=== PATIENT | female | born 1960 | race Caucasian/White ===

== ENCOUNTER 2018-09-01 18:41 | Inpatient (IN) | payer OTHER ==
[~2018-09-01] VITALS: Ht 154.9 cm; Wt 99.0 kg
[~2018-09-01 18:41] MED LIST: BENAZEPRIL HCL20 MG PO; DEXILANT60 MG PO; INVOKANA PO; NOVOLOG INSULIN PUMP
--- OUTSIDE RECORDS SUMMARY | 2018-09-01 18:45 | XMS REPORT ---
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 Allergies, Adverse Reactions, Alerts Allergy Name Allergy Type Status Severity Reaction(s) Onset Date Inactive Date Treating Clinician Comments No Known Drug Allergies DA Active U 2013-06-18 00:00:00 Medications This patient has no known medications.
[2018-09-01 19:34] LABS: BASOPHILS % 0.3 % (0.0-1.0); EOSINOPHILS # (AUTO) 0.3 (0.0-0.4); EOSINOPHILS % 2.5 % (0.0-6.0); HEMATOCRIT 37.2 % (34.2-44.1); HEMOGLOBIN 11.6 g/dL (12.0-16.0); LYMPHOCYTES % 16.3 % (18.0-39.1); MEAN CORPUSCULAR HEMOGLOBIN 26.1 pg (28-32); MEAN CORPUSCULAR HGB CONC 31.2 g/dL (31-35); MEAN CORPUSCULAR VOLUME 83.8 fL (81-99); MONOCYTES # (AUTO) 0.6 (0.2-0.8); MONOCYTES % 4.6 % (4.4-11.3); NEUTROPHILS # (AUTO) 9.2 (2.1-6.9); NEUTROPHILS % 75.9 % (38.7-80.0); PLATELET COUNT 237 x10e3/uL (140-360); RED BLOOD COUNT 4.44 x10e6/uL (3.6-5.1); RED CELL DISTRIBUTION WIDTH 15.4 % (11.7-14.4)
[2018-09-01 19:42] LABS: INR 0.88; PROTHROMBIN TIME 12.4 seconds (11.9-14.5)
[2018-09-01 19:43] LABS: PARTIAL THROMBOPLASTIN TIME 25.8 seconds (23.8-35.5)
[2018-09-01 19:52] LABS: ALBUMIN 3.4 g/dL (3.5-5.0); ALBUMIN/GLOBULIN RATIO 1.1 (0.8-2.0); CREATININE, SERUM 1.1 mg/dL (0.57-1.11)
[2018-09-01 19:59] LABS: CREATINE KINASE MB 1.5 ng/mL (0-5.0)
--- NOTE | 2018-09-01 20:11 | Diagnostic Imaging Report ---
EXAMINATION: PA and lateral views of the chest. COMPARISON: None CLINICAL HISTORY: Syncope, bradycardia, and dizziness DISCUSSION: Lungs: The lungs are well inflated and clear. There is no evidence of pneumonia or pulmonary edema. Pleura: There is no pleural effusion or pneumothorax. Heart and mediastinum: Mildly enlarged chronic silhouette. Pulmonary vasculature is normal. Bones and soft tissues: No acute bony abnormalities. Degenerative changes in the thoracic spine IMPRESSION: No acute cardiopulmonary abnormalities. Signed by: Eric Schneider MD on 09/01/2018 8:08 PM
[2018-09-01 20:27] LABS: BILIRUBIN,URINE NEGATIVE (NEGATIVE); CLARITY,URINE HAZY (CLEAR); COLOR,URINE YELLOW (YELLOW); KETONES,URINE NEGATIVE (NEGATIVE); LEUKOCYTE ESTERASE ,URINE NEGATIVE (NEGATIVE); NITRITE,URINE NEGATIVE (NEGATIVE); PROTEIN,URINE DIPSTICK TRACE (NEGATIVE); URINE UROBILINOGEN 0.2 mg/dL (0.2 - 1)
[2018-09-01 20:39] LABS: AMORPHOUS SEDIMENT,URINE MANY (FEW); BACTERIA,URINE FEW /HPF; EPITHELIAL CELLS,URINE FEW /LPF; TRANSITIONAL EPI CELLS,URINE MANY
[2018-09-01] MEDS ORDERED: LOSARTAN POTASS50 MG PO (23:34)
[2018-09-01] MEDS ORDERED: AZELASTINE137 MCG/0. INH (23:34)
[2018-09-01] MEDS ORDERED: PANTOPRAZOLE SO40 MG PO (23:34)
[2018-09-01] MEDS ORDERED: JANUVIA100 MG PO (23:34)
[2018-09-02] VITALS (23 sets, daily range): BP systolic 109–189; BP diastolic 35–91
[2018-09-02] MEDS ORDERED: DEXTROSE 50% SYRINGE 50 ML IV PRN (00:15)
[2018-09-02] MEDS ORDERED: ASPIRIN81 MG PO (01:54)
[2018-09-02 05:04] LABS: BASOPHILS % 0.4 % (0.0-1.0); EOSINOPHILS # (AUTO) 0.2 (0.0-0.4); EOSINOPHILS % 2.2 % (0.0-6.0); HEMATOCRIT 33.5 % (34.2-44.1); HEMOGLOBIN 10.7 g/dL (12.0-16.0); LYMPHOCYTES # (AUTO) 3.3 (1.0-3.2); LYMPHOCYTES % 30.5 % (18.0-39.1); MEAN CORPUSCULAR HEMOGLOBIN 26.2 pg (28-32); MEAN CORPUSCULAR HGB CONC 31.9 g/dL (31-35); MEAN CORPUSCULAR VOLUME 81.9 fL (81-99); MONOCYTES # (AUTO) 0.8 (0.2-0.8); MONOCYTES % 7.6 % (4.4-11.3); NEUTROPHILS # (AUTO) 6.3 (2.1-6.9); NEUTROPHILS % 58.9 % (38.7-80.0); PLATELET COUNT 250 x10e3/uL (140-360); RED BLOOD COUNT 4.09 x10e6/uL (3.6-5.1); RED CELL DISTRIBUTION WIDTH 15.4 % (11.7-14.4)
[2018-09-02 05:22] LABS: ANION GAP 10.9 mmol/L (8-16); BLOOD UREA NITROGEN 14 mg/dL (7-26); BUN/CREATININE RATIO 15 (6-25); CALCIUM 9.7 mg/dL (8.4-10.2); CARBON DIOXIDE 26 mmol/L (22-29); CHLORIDE 104 mmol/L (98-107); CREATININE, SERUM 0.91 mg/dL (0.57-1.11); EST GLOMERULAR FILTRATION RATE > 60 ML/MIN (60-); GLUCOSE 209 mg/dL (74-118); POTASSIUM 3.9 mmol/L (3.5-5.1); SODIUM 137 mmol/L (136-145)
--- NOTE | 2018-09-02 06:37 | NUR ---
Notified Dr. Jara of consult for Dr. Chavarria. No new orders received. Message left with answering service this morning for Dr. Inman regarding consult. Awaiting return call.
--- NOTE | 2018-09-02 07:15 | NUR ---
patient received awake and alert. seeshift assess. 3rd degree heart block. instructed to call for help to bathroom to avoid falls. keeping npo until seen by cardiology for possible pacer placement today. no distress. vitals stable.
[2018-09-02] MEDS: INSULIN LISPRO 100 UNIT/1 ML 3ML VIAL SQ SCH ×5 (07:30→21:10)
[2018-09-02] MEDS: ASPIRIN 81 MG CHEW TAB PO SCH (08:09)
[2018-09-02] MEDS: PANTOPRAZOLE SOD 40 MG TABEC PO SCH (08:09)
--- NOTE | 2018-09-02 08:10 | NUR ---
patient states protonix given this am for acid reflux. 0900 dose held.
--- NOTE | 2018-09-02 10:17 | NUR ---
WOUND CARE-PUP SCREEN LOS : 1 DAY AGE: 58 F ROGERS SCORE :20 VISCO MATTRESS/ALTERNATING PRESSURE AIR MATTRESS PUP : CONSERVATIVE HOB: 30 DEGREES HEEL PROTECTORS: NONE PATIENT VISIT/SKIN CHECK: BILATERAL BUTTOCKS WITH BLANCHING REDNESS, NO SKIN BREAKDOWN IDENTIFIED. PATIENT ABLE TO TURN SELF RECOMMENDATION: TURN AND REPOSITION EVERY 2 HOURS Addendum: 09/02/18 at 1038 by Dali Jimenez RN Amended: Links added. Addendum: 09/02/18 at 1228 by Dali Jimenez RN PATIENT AND SPOUSE EDUCATED TO THE IMPORTANCE OF TURNING EVERY 2 HRS. SHE IS CURRENTLY ON AN ALTERNATING PRESSURE RELIEF MATTRESS WITH APPROPRIATE SETTINGS.
--- NOTE | 2018-09-02 11:33 | NUR ---
Dr Kincaid in to see patient then notified by phone that runs of V-Tach are becoming more frequent and longer. He is trying to move pacer to an earlier time. patient hooked to defibrillator as safety precaution.
--- NOTE | 2018-09-02 13:21 | NUR ---
ATTEMPTED CM INITIAL ASSESSMENT, BUT PT HAVING RUNS OF VTACH AND GOING FOR PMI. WILL ASSESS LATER.
[2018-09-02] MEDS ORDERED: BACITRACIN 50,000 UNIT VIAL ONE (14:12)
[2018-09-02] MEDS ORDERED: LIDOCAINE HCL 2% LOCAL 20 ML VIAL ONE ×2 (14:12→16:30)
[2018-09-02] MEDS ORDERED: SODIUM CHLORIDE 0.9% 500ML 500 ML ONE (14:13)
[2018-09-02] MEDS ORDERED: SODIUM CHLORIDE 0.9% 1000ML 2,000 ML ONE (14:13)
--- NOTE | 2018-09-02 14:50 | NUR ---
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
[2018-09-02] MEDS ORDERED: VANCOMYCIN 1GM/NS 250 ML 250 ML ONE (15:11)
[2018-09-02] MEDS ORDERED: MIDAZOLAM HCL 2 MG/2 ML VIAL ONE ×3 (15:17→16:29)
[2018-09-02] MEDS ORDERED: FENTANYL CITRATE/PF 100MCG/2 ML INJ ONE ×2 (15:18→16:30)
--- NOTE | 2018-09-02 16:10 | NUR ---
Report received from Tona Andrews RN. Review of current procedural events and pending LHC. VS trend reviewed and left shoulder area PPM assessed. Assume of care.
[2018-09-02] MEDS ORDERED: HEPARIN SOD (PORCINE) 1000 UNIT/ML 30ML ONE (16:29)
[2018-09-02] MEDS ORDERED: IOPAMIDOL 370 MG/ML 200 ML INFUS..BTL INJ ONE (16:30)
[2018-09-02] MEDS ORDERED: HEPARIN SOD/SOD CHLORIDE 2,000 ML ONE (16:30)
--- NOTE | 2018-09-02 16:35 | NUR ---
pacemaker placed and new consent signed for heart cath by Dr Chavarria.
--- NOTE | 2018-09-02 17:31 | NUR ---
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 right groin site with no hematoma or bleeding. BP slightly high but will monitor closely.
--- NOTE | 2018-09-02 17:35 | NUR ---
Report provided to Jurgen Wilks RN, review of procedural findings and medications given. Patient drowsy, easily aroused. maintains airway and room air saturations of 94-96%. No gross issues of pressure, pain, pallor or dysrhythmia. IV site patent bilateral forearms and saline locked. patient hemodynamically stable with hemostasis right groin dressing CDI w/o s/s of bleeding. [facility]/o incident. Arm immobilizer applied to left arm. Dressing to left upper chest intact w/o gross issues. overall skin condition appears intact transported to ICU 194 on zolls monitor- cgf procedure: AV PPM, Left Heart cath with coronary angiography Sheath puller: Eleno RTr 5Fr Vasqade Meds Given Intra-Procedure Sedatives Versed - 4 mg Fentanyl - 100 mcg Fluids Input - 500 Output - dtv Contrast Isovue 370 - 60ml (ppm+lhc) Other Meds Vancomycin 1gram IVPB
[2018-09-02] MEDS ORDERED: MORPHINE SULFATE 2 MG/ML SYR 1ML IV PRN (17:45)
[2018-09-02] MEDS ORDERED: MORPHINE SULFATE INJ 4 MG/ML INJ 1ML IV PRN (18:00)
[2018-09-02] MEDS ORDERED: HYDROCODONE/APAP 10MG-325MG TAB PO PRN (22:45)
--- NOTE | 2018-09-02 23:14 | Consultation ---
DATE OF CONSULTATION: Cardiology Consultation. HISTORY OF PRESENT ILLNESS: This is a 58-year-old woman with a history of obesity, hypertension, diabetes mellitus, who presented to the Emergency Department with severe lightheadedness and dizziness with near syncope. She denies any idalia syncope or loss of consciousness. She was found to be in complete heart block with episodes of ventricular tachycardia and was admitted to the intensive care unit. She is currently feeling well with occasional episodes of dizziness. REVIEW OF SYSTEMS: A 12-point review of system was conducted, is negative, otherwise as stated above in the HPI. PAST MEDICAL HISTORY: As stated above in the HPI. PAST SURGICAL HISTORY: None. FAMILY HISTORY: No premature coronary artery disease or sudden cardiac . SOCIAL HISTORY: No illicit drug use, alcohol use or tobacco use. ALLERGIES: NO KNOWN DRUG ALLERGIES. MEDICATIONS: See medications reconciliation form. PHYSICAL EXAMINATION: VITAL SIGNS: She is afebrile, heart rate is 38, respirations are 17, blood pressure is 164/54, oxygen saturation 97% on room air. GENERAL: Well appearing in no apparent distress. Alert and oriented x3. HEAD: Normocephalic, atraumatic. Eyes, the extraocular muscles are intact. Conjunctivae are clear. NECK: No JVD. No bruits. CARDIOVASCULAR: Regular rate and rhythm. LUNGS: Clear to auscultation bilaterally. No wheezing or rales. ABDOMEN: Soft, nontender, nondistended with normoactive bowel sounds. EXTREMITIES: No clubbing, cyanosis or edema. VASCULAR: 2+ pulses. SKIN: Warm, dry and intact. NEUROLOGIC: No focal deficits noted. Cranial nerves grossly intact. PSYCHIATRIC: Normal mood and affect. LABORATORY DATA: Reviewed. Potassium 3.9, creatinine 0.91, glucose elevated. Liver function tests normal. Troponin is normal. A 12-lead electrocardiogram showed complete heart block. Telemetry monitoring revealed complete heart block with episodes of polymorphic ventricular tachycardia. IMPRESSION: 1. Complete heart block. 2. Ventricular tachycardia. 3. Hypertension. 4. Hyperlipidemia. 5. Obesity. 6. Diabetes mellitus. RECOMMENDATIONS: Electrophysiology has plans to place a permanent pacemaker today. Over the time, patient will likely get rid of the ventricular tachycardia. If needed, we will restart beta blockers and/or amiodarone for her ventricular tachycardia. The patient will require coronary angiography as well at the time of pacemaker implantation. We will continue to monitor closely. DO POLLY Mcclure/JIN /[id number]
[2018-09-03] VITALS (13 sets, daily range): BP systolic 93–165; BP diastolic 33–79
[2018-09-03] MEDS: PANTOPRAZOLE SOD 40 MG TABEC PO SCH (08:15)
[2018-09-03] MEDS: ASPIRIN 81 MG CHEW TAB PO SCH (08:15)
[2018-09-03] MEDS ORDERED: LOSARTAN POTASSIUM 25 MG TAB PO SCH (09:00)
[2018-09-03] MEDS ORDERED: NON-FORMULARY MEDICATION (Losartan Potassium 1 TAB) PO SCH (09:00)
--- NOTE | 2018-09-03 09:24 | NUR ---
Received patient from ICU via wheelchair. Accompanied by family members. AAOX4 to time, person, place, situation. Respirations even and unlabored. Tele #20 paced. Sling to left arm. Oriented patient to room. Instructed to use call light for assistance. Voiced understanding. WIll continue to monitor.
--- NOTE | 2018-09-03 09:25 | NUR ---
PT TRANSFERRED TO ROOM 206.
--- NOTE | 2018-09-03 11:51 | Operative Report ---
DATE OF PROCEDURE: SURGEON: Lionel Kincaid DO PROCEDURES PERFORMED: 1. Conscious sedation, 26 minutes. 2. Selective coronary angiography x2. 3. Left heart catheterization. PREPROCEDURE DIAGNOSIS: Complete heart block with ventricular tachycardia. POSTPROCEDURE DIAGNOSIS: Nonobstructive coronary artery disease. ESTIMATED BLOOD LOSS: Less than 20 mL. SPECIMENS REMOVED: None. PROCEDURE IN DETAIL: After informed consent was obtained, the patient was brought to the cardiac catheterization laboratory in a fasting and nonsedated state. Bilateral groins were prepped and draped in the usual sterile fashion. A 2% lidocaine was infiltrated over the right anterior groin for local anesthesia. Using micropuncture needle, the right common femoral artery was accessed via modified Seldinger technique and a 5-Luxembourgish sheath was placed. Next, diagnostic coronary angiography was performed using a JL4 and 3DRC catheter. The 3DRC catheter was used to perform the left heart catheterization as well. The patient tolerated the procedure well. Hemostasis was achieved via Vascade device. The patient tolerated the procedure well with no immediate complications. She was transferred back to room in stable condition. PROCEDURE FINDINGS: 1. Left main coronary artery is patent without significant coronary artery disease. 2. Left anterior descending coronary artery is patent with mild luminal irregularities. 3. Left circumflex coronary artery provides one medium caliber obtuse marginal vessel with mild luminal irregularities. 4. Right coronary artery is a dominant vessel, provides the posterior descending coronary artery. The proximal portion of the posterior descending coronary artery has 20% to 30% non-flow limiting stenosis. 5. Left ventricular end-diastolic pressure was 15 mmHg with no aortic valve gradient present upon pullback. Lionel Kincaid DO BM/MODL /[id number]
[2018-09-03] MEDS: INSULIN LISPRO 100 UNIT/1 ML 3ML VIAL SQ SCH ×2 (12:13→15:36)
--- NOTE | 2018-09-03 15:15 | NUR ---
aware patient cleared from cardiac standpoint. See orders
--- NOTE | 2018-09-03 15:36 | NUR ---
Educated patient s/s of hypoglycemia. States " I will be connecting myself to my insulin pump tonight"
--- NOTE | 2018-09-03 15:55 | NUR ---
Left AC IV discontinued. No signs of infiltration noted. 2x2 gauze and tape placed. Taken via wheelchair by PCT to personal car. AAOX4 to time, person, place, situation. Respirations even and unlabored. Dressing to right groin and left chest clean, dry, and intact. Sling to left arm in place. Discharge instructions and all personal belongings taken with patient. Accompanied by .
--- NOTE | 2018-09-03 17:44 | Progress Note ---
DATE: Cardiology Progress Note SUBJECTIVE: The patient is feeling well. Denies any chest pain, shortness of breath, dizziness, or lightheadedness. OBJECTIVE: VITAL SIGNS: Temperature is 97.8, heart rate is 85, respirations are 18, blood pressure is 125/60, and oxygen saturation 98% on room air. GENERAL: Well appearing, in no apparent distress. CARDIOVASCULAR: Regular rate and rhythm with ectopy. LUNGS: Clear to auscultation. ABDOMEN: Soft, nontender, and nondistended. EXTREMITIES: No edema. MEDICATIONS: Reviewed. LABORATORY DATA: Reviewed. TELEMETRY: Monitoring revealed ventricular paced rhythm. Pacemaker interrogation today showed normal function. IMPRESSION: 1. Complete heart block, status post permanent pacemaker implantation. 2. Ventricular tachycardia, likely related to complete heart block. 3. Nonobstructive coronary artery disease. 4. Diabetes mellitus. RECOMMENDATIONS: The patient has a stable cardiovascular status within the last 24 hours. The pacemaker has normal function. She had no significant coronary artery disease noted on coronary angiography. Continue current cardiovascular medications. The patient may be discharged from a cardiovascular standpoint with close outpatient followup. We would recommend statin initiation given mild nonobstructive coronary artery disease and diabetes mellitus. DO POLLY Mcclure/JIN /[id number]
--- NOTE | 2018-09-05 02:22 | Discharge Summary ---
DISCHARGE DIAGNOSES: Complete heart block, status post permanent pacemaker, diabetes, hypertension, and nonsustained ventricular tachycardia. HISTORY OF PRESENT ILLNESS: The patient is a lady, who presented to the emergency room with complete heart block after syncopal episode. She was brought in and seen by Dr. Kincaid of Cardiology, who sent her to the [facility] Conveyor Operator showing nonobstructive coronary artery disease. She did have an episode of ventricular tachycardia during the procedure that required one round of shock, then she had a pacemaker placed without complications with 100 percent pacing at around 85 beats per minute and she had some postprocedure soreness in the shoulder area. Then, postprocedure, Dr. Kincaid evaluated the patient and said she was cleared to be discharged home in good condition with continuation of home medications and follow up with me in 1-2 weeks as well as with Dr. Kincaid in 1-2 weeks. Please see hospital chart for full details. MD ALEXY Thurston/JIN /[id number]
== END 2018-09-03 15:59 | disposition home or self-care (01) | DRG 243 ==
LOC: ER 18:41 → ERHOLD 09-02 00:58 → ICU 09-02 01:20 → OBSVTOIN 09-02 11:11 → MED/SURG2 09-03 09:28
PROVIDERS: ADMIT Internal Medicine; ATTEND Internal Medicine
PROC: 0JH606Z Insertion of Pacemaker, Dual Chamber into Chest Subcutaneous Tissue and Fascia, Open Approach (ICD-10-PCS; 2018-09-02)
PROC: 02H63JZ Insertion of Pacemaker Lead into Right Atrium, Percutaneous Approach (ICD-10-PCS; 2018-09-02)
PROC: 02HK3JZ Insertion of Pacemaker Lead into Right Ventricle, Percutaneous Approach (ICD-10-PCS; 2018-09-02)
PROC: 4A023N7 Measurement of Cardiac Sampling and Pressure, Left Heart, Percutaneous Approach (ICD-10-PCS; principal; 2018-09-03)
PROC: B2111ZZ Fluoroscopy of Multiple Coronary Arteries using Low Osmolar Contrast (ICD-10-PCS; 2018-09-03)
PROC: B2151ZZ Fluoroscopy of Left Heart using Low Osmolar Contrast (ICD-10-PCS; 2018-09-03)
DX: I44.2 Atrioventricular block, complete (principal); Z68.41 Body mass index [BMI] 40.0-44.9, adult; E11.9 Type 2 diabetes mellitus without complications; I10 Essential (primary) hypertension; I47.2 Ventricular tachycardia; E66.9 Obesity, unspecified
CPT/HCPCS: 33208; 36415; 71046; 80048; 80053; 81001; 82550; 82553; 82948; 84443; 84484; 85025; 85610; 85730; 93306; 93458; 99284; C1760; C1769; J1644; J2001; J2250; J3370; J7030; J7040; Q9967

== ENCOUNTER 2024-08-23 22:40 | Inpatient (IN) | payer MEDICARE, OTHER ==
[~2024-08-23] VITALS: Ht 154.9 cm; Wt 88.9 kg
[~2024-08-23 22:40] MED LIST changes: +ASPIRIN81 MG PO; +AZELASTINE137 MCG/0. INH; +JANUVIA100 MG PO; +LOSARTAN POTASS50 MG PO; +PANTOPRAZOLE SO40 MG PO
[2024-08-23 22:42] VITALS: TEMP 98.2
[2024-08-23 23:15] LABS: BASOPHILS % 0.3 % (0.0-1.0); EOSINOPHILS % 0.4 % (0.0-6.0); HEMATOCRIT 39.1 % (34.2-44.1); HEMOGLOBIN 12.3 g/dL (12.0-16.0); LYMPHOCYTES # (AUTO) 2.7 (1.0-3.2); LYMPHOCYTES % 24.5 % (18.0-39.1); MEAN CORPUSCULAR HEMOGLOBIN 26.2 pg (28-32); MEAN CORPUSCULAR HGB CONC 31.5 g/dL (31-35); MEAN CORPUSCULAR VOLUME 83.2 fL (81-99); MONOCYTES # (AUTO) 0.8 (0.2-0.8); NEUTROPHILS # (AUTO) 7.3 (2.1-6.9); NEUTROPHILS % 67.4 % (38.7-80.0); PLATELET COUNT 273 x10e3/uL (140-360); RED CELL DISTRIBUTION WIDTH 16.7 % (11.7-14.4)
[2024-08-23] MEDS: ONDANSETRON HCL INJ 2MG/ML 2ML 2 MG/ML VIAL IV STA (23:23)
[2024-08-23 23:33] LABS: ALBUMIN 3.5 g/dL (3.5-5.0); ALBUMIN/GLOBULIN RATIO 1.3 (0.8-2.0); ANION GAP 15.2 mmol/L (8-16); BILIRUBIN,TOTAL 0.3 mg/dL (0.2-1.2); CALCIUM 10.2 mg/dL (8.4-10.2); CREATININE, SERUM 1.41 mg/dL (0.57-1.11); POTASSIUM 4.2 mmol/L (3.5-5.1); TOTAL PROTEIN 6.3 g/dL (6.5-8.1)
[2024-08-23 23:47] LABS: CLARITY,URINE CLOUDY (CLEAR); COLOR,URINE STRAW (YELLOW); PH,URINE 8.5 (5 - 7)
[2024-08-23 23:48] LABS: BILIRUBIN,URINE NEGATIVE (NEGATIVE); GLUCOSE, URINE NEGATIVE (NEGATIVE); KETONES,URINE NEGATIVE (NEGATIVE); LEUKOCYTE ESTERASE ,URINE NEGATIVE (NEGATIVE); NITRITE,URINE NEGATIVE (NEGATIVE); PROTEIN,URINE DIPSTICK TRACE (NEGATIVE); URINE UROBILINOGEN 0.2 mg/dL (0.2 - 1)
[2024-08-23] MEDS: Morphine 4mg INJECTION 4 MG/ML INJ IV ONE (23:51)
[2024-08-23 23:54] LABS: BACTERIA,URINE MANY /HPF; EPITHELIAL CELLS,URINE FEW /LPF; RBC,URINE >50 /HPF (0-5); TRANSITIONAL EPI CELLS,URINE FEW
[2024-08-24] VITALS (10 sets, daily range): BP systolic 121–149; BP diastolic 48–88; PULSE 69–70; RESP 16–19; TEMP 97–98.4; O2SAT 97–100
[2024-08-24] MEDS ORDERED: DEXTROSE 50% SYRINGE 50 ML IV PRN (00:30)
[2024-08-24] MEDS: SODIUM CHLORIDE 0.9% 1000ML 1,000 ML IV SCH (00:44)
[2024-08-24] MEDS: ONDANSETRON HCL INJ 2MG/ML 2ML 2 MG/ML VIAL IV PRN (03:18)
[2024-08-24] MEDS: Morphine 4mg INJECTION 4 MG/ML INJ IV PRN (03:19)
[2024-08-24] MEDS: PROMETHAZINE 25MG/ NS 50ML (IV) IV PRN (05:31)
[2024-08-24] MEDS: INSULIN REGULAR, HUMAN 100 UNIT/1 ML SQ SCH (07:30)
[2024-08-24] MEDS: SITAGLIPTIN 100 MG TAB PO SCH (08:34)
[2024-08-24] MEDS: PANTOPRAZOLE SOD 40 MG TABEC PO SCH (08:34)
[2024-08-24] MEDS ORDERED: ALLOPURINOL300 MG PO (13:15)
[2024-08-24] MEDS ORDERED: GLIMEPIRIDE2 MG PO (13:15)
[2024-08-24] MEDS ORDERED: ELIQUIS5 MG PO (13:15)
[2024-08-24] MEDS ORDERED: LOSARTAN POTASS25 MG PO (13:15)
[2024-08-24] MEDS ORDERED: METOPROLOL SUCC50 MG PO (13:15)
[2024-08-24] MEDS: HYDROMORPHONE 1MG/1ML INJ IV PRN (16:04)
[2024-08-25] VITALS: BP 136/65; PULSE 70; RESP 18; TEMP 97.9; O2SAT 97
[2024-08-25 05:23] VITALS: BP 131/59; PULSE 69; RESP 16; TEMP 97.3; O2SAT 99
[2024-08-25 05:28] LABS: BASOPHILS # (AUTO) 0.1 (0.0-0.1); BASOPHILS % 0.5 % (0.0-1.0); EOSINOPHILS # (AUTO) 0.1 (0.0-0.4); EOSINOPHILS % 0.5 % (0.0-6.0); HEMATOCRIT 35.9 % (34.2-44.1); HEMOGLOBIN 10.9 g/dL (12.0-16.0); LYMPHOCYTES # (AUTO) 1.6 (1.0-3.2); LYMPHOCYTES % 14.9 % (18.0-39.1); MEAN CORPUSCULAR HEMOGLOBIN 26.2 pg (28-32); MEAN CORPUSCULAR HGB CONC 30.4 g/dL (31-35); MEAN CORPUSCULAR VOLUME 86.3 fL (81-99); MONOCYTES # (AUTO) 0.8 (0.2-0.8); MONOCYTES % 7.5 % (4.4-11.3); NEUTROPHILS # (AUTO) 8.2 (2.1-6.9); NEUTROPHILS % 76.2 % (38.7-80.0); PLATELET COUNT 203 x10e3/uL (140-360); RED BLOOD COUNT 4.16 x10e6/uL (3.6-5.1); RED CELL DISTRIBUTION WIDTH 17.1 % (11.7-14.4); WHITE BLOOD COUNT 10.74 x10e3/uL (4.8-10.8)
[2024-08-25 06:14] LABS: ALBUMIN 2.9 g/dL (3.5-5.0); ALBUMIN/GLOBULIN RATIO 1.1 (0.8-2.0); ANION GAP 13.3 mmol/L (8-16); BILIRUBIN,TOTAL 0.3 mg/dL (0.2-1.2); CALCIUM 9.4 mg/dL (8.4-10.2); CREATININE, SERUM 1.59 mg/dL (0.57-1.11); POTASSIUM 4.3 mmol/L (3.5-5.1); TOTAL PROTEIN 5.6 g/dL (6.5-8.1)
[2024-08-25 08:00] VITALS: BP 120/53; PULSE 70; RESP 18; TEMP 98.4; O2SAT 99
[2024-08-25 09:00] VITALS: BP 128/48; PULSE 70; RESP 16; TEMP 98.2; O2SAT 98
[2024-08-25] MEDS ORDERED: ACETAMINOPHEN 1000 MG/100 ML 100 ML IV ONE (09:30)
[2024-08-25] MEDS ORDERED: PROPOFOL IV EMULSION 10 MG/ML 20 ML VIAL ONE (09:30)
[2024-08-25] MEDS ORDERED: LIDOCAINE HCL 2% LOCAL INJ 5 ML SDV VIAL INJ ONE (09:30)
[2024-08-25] MEDS ORDERED: SEVOFLURANE INHAL SOLN 250 ML PEN BTL ONE (09:30)
[2024-08-25] MEDS ORDERED: FENTANYL CITRATE/PF 100MCG/2 ML INJ ONE (09:30)
[2024-08-25] MEDS ORDERED: ONDANSETRON HCL INJ 2MG/ML 2ML 2 MG/ML VIAL ONE (12:04)
[2024-08-25] MEDS ORDERED: FAMOTIDINE 20 MG/2 ML VIAL IV ONE (12:04)
[2024-08-25] MEDS ORDERED: DEXAMETHASONE SOD PHOS INJ 4 MG/ML SDV ONE (12:04)
[2024-08-25 16:00] VITALS: BP 120/63; PULSE 70; RESP 17; TEMP 98.1; O2SAT 99
[2024-08-25 20:00] VITALS: BP 144/55; PULSE 68; RESP 16; TEMP 97.2; O2SAT 100
[2024-08-26] VITALS: BP 129/48; PULSE 69; RESP 16; TEMP 97.2; O2SAT 100
[2024-08-26 05:32] VITALS: BP 145/49; PULSE 70; RESP 18; TEMP 97.3; O2SAT 99
[2024-08-26 08:14] VITALS: BP 144/53; PULSE 68; RESP 20; TEMP 98.4; O2SAT 99
[2024-08-26 09:55] VITALS: BP 144/53; PULSE 68; RESP 20; TEMP 98.4; O2SAT 99
[2024-08-26 11:57] VITALS: BP 122/49; PULSE 71; RESP 18; TEMP 98.9; O2SAT 100
== END 2024-08-26 15:30 | disposition home or self-care (01) | DRG 660 ==
LOC: ER 22:51 → ERHOLD 08-24 00:23 → MED/SURG2 08-24 00:56
PROVIDERS: ADMIT Internal Medicine; ATTEND Internal Medicine
PROC: BT1D1ZZ Fluoroscopy of Right Kidney, Ureter and Bladder using Low Osmolar Contrast (ICD-10-PCS; 2024-08-25)
PROC: 0T768DZ Dilation of Right Ureter with Intraluminal Device, Via Natural or Artificial Opening Endoscopic (ICD-10-PCS; principal; 2024-08-25 11:57)
PROC: 0TC68ZZ Extirpation of Matter from Right Ureter, Via Natural or Artificial Opening Endoscopic (ICD-10-PCS; 2024-08-25 11:57)
DX: N13.6 Pyonephrosis (principal); Z16.24 Resistance to multiple antibiotics; E11.22 Type 2 diabetes mellitus with diabetic chronic kidney disease; I12.9 Hypertensive chronic kidney disease with stage 1 through stage 4 chronic kidney disease, or unspecified chronic kidney disease; N18.31 Chronic kidney disease, stage 3a; I48.91 Unspecified atrial fibrillation; K21.9 Gastro-esophageal reflux disease without esophagitis; M19.90 Unspecified osteoarthritis, unspecified site; G20.C Parkinsonism, unspecified; B95.7 Other staphylococcus as the cause of diseases classified elsewhere; E66.01 Morbid (severe) obesity due to excess calories; Z68.37 Body mass index [BMI] 37.0-37.9, adult; Z79.82 Long term (current) use of aspirin; Z79.84 Long term (current) use of oral hypoglycemic drugs; Z87.442 Personal history of urinary calculi; Z87.440 Personal history of urinary (tract) infections; Z95.0 Presence of cardiac pacemaker; Z96.41 Presence of insulin pump (external) (internal); Z90.49 Acquired absence of other specified parts of digestive tract; Z88.1 Allergy status to other antibiotic agents; Z88.2 Allergy status to sulfonamides; Z88.7 Allergy status to serum and vaccine
CPT/HCPCS: 36415; 74176; 74420; 80053; 81001; 82948; 85025; 87086; 87186; 88300; 94799; 99252; 99284; C2617; J0696; J1100; J1171; J2003; J2270; J2405; J2470; J2550; J7030